=== PATIENT | female | born 1990 | race Hispanic/Latino ===

== ENCOUNTER 2016-11-07 10:04 | Emergency (ER) | payer OTHER ==
[~2016-11-07 10:04] MED LIST: ACET50TA PO; ANUS2.5C2 TOP; COLA50CA3 PO; IBUP80TA PO; IRON325T PO; MOM30SS PO; PRENTAB74 PO
--- NOTE | 2016-11-07 11:33 | REP ---
Emergency first trimester obstetric sonography: History: Cramping. Findings: Transabdominal scanning demonstrates a viable single intrauterine gestation. [place]-rump length of the embryonic pole is 13 mm. This corresponds with a gestational age estimate of 7 weeks 4 days. heart rate is recorded at 158. No subchorionic hemorrhage is seen. There is a 2.2 centimeter cyst in the right maternal ovary consistent with corpus luteum. Impression: Viable single intrauterine gestation at 7 weeks 4 days by crown-rump length. MARTHA by sonography June 22, 2017. No complication identified. Signed by Earl Sawyer MD 11/07/2016 02:00 P
--- NOTE | 2016-11-07 11:34 | EDDOCDS ---
Nurse's Notes [facility] Name: Loy Redmond Age: 26 yrs Sex: Female : 1990 Arrival Date: 11/07/2016 Time: 10:04 Bed PR1 / Private MD: Mary [facility] Diagnosis: related conditions, unspecified, first trimester Presentation: 11/07 10:09 Presenting complaint: Patient states: Was called by Mary a few minutes ago and told jo3 she had a positive test yesterday. Has been having lower abdominal pain x four days and brown spotting this morning. Adult Sepsis Screening: The patient does not have new or worsening altered mentation. Patient's respiratory rate is less than 22. Systolic blood pressure is greater than 100. Patient has a qSOFA score of 0- Negative Sepsis Screen. Suicide/Homicide risk assessment- the patient denies having any suicidal and/or homicidal ideations and does not present with any other emotional, behavioral or mental health complaints. Status: The patient is a dependent. Transition of care: patient was not received from another setting of care. 10:09 Acuity: DAGMAR Level 3 jo3 10:09 Method Of Arrival: Walkin/Carried/Asstd jo3 10:14 Presenting complaint: Patient states: Pt states at end of triage "I have only known I jan was for like three days so I want to know if anything is wrong". Triage Assessment: 10:11 General: Appears in no apparent distress, comfortable, Behavior is appropriate for age, jo3 cooperative. Pain: Pain currently is 4 out of 10 on a pain scale. HIV screening NA for this visit Offered previously. Neurological: Level of Consciousness is awake, alert, Oriented to person, place, time. Respiratory: Airway is patent Respiratory effort is even, unlabored. GI: Reports lower abdominal pain. Derm: Skin is pink, warm & dry. 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 none - PMHx: none; - PSHx: none; - Social history: Smoking status: Patient states was never smoker of tobacco. No barriers to communication noted, The patient speaks fluent Ugandan, Speaks appropriately for age. - Family history: Not pertinent. - : The pt / caregiver states he / she is not on anticoagulants. Home medication list is obtained from the patient. - Exposure Risk Screening:: None identified. Screenin:30 Screening information is obtained from the patient. Fall risk: No risks identified. jo3 Assistance ADL's: requires no assistance with activities of daily living. Abuse/DV Screen: The patient / caregiver reports he/she is: not in a situation that causes fear, pain or injury. Nutritional screening: No deficits noted. Advance Directives: There is no active DNR order. home support is adequate. Assessment: 10:29 General: Appears in no apparent distress, comfortable, Behavior is appropriate for age, jo3 cooperative, pleasant. Neurological: No deficits noted. Respiratory: No deficits noted. Airway is patent Respiratory effort is even, unlabored. Derm: Skin is pink, warm & dry. 11:31 Reassessment: Patient appears in no apparent distress at this time. Patient states ttb feeling better. Patient states symptoms have improved. pt states headache. Educated on use of tylenol during pregancy. States she is comfortable going home.. GI: other no n/v noted. Vital Signs: 10:05 BP 123 / 73; Pulse 92; Resp 18 S; Temp 96.6(O); Pulse Ox 98% on R/A; Weight 58.06 kg dd6 (M); Height 5 ft. 1 in. (154.94 cm) (R); 11:27 BP 125 / 72; Pulse 78; Resp 18; Pulse Ox 100% ; Pain 2/10; ttb 10:05 Body Mass Index 24.19 (58.06 kg, 154.94 cm) dd6 Vitals: 10:05 Log In Time: November 07, 2016 at 10:03. dd6 ED Course: 10:05 Patient visited by Randy Rosales PCA. dd6 10:05 NICOLE Hernandez is Private Physician. dd6 10:05 Patient moved to Waiting dd6 10:06 Patient moved to Pre RCE dd6 10:11 Triage Initiated jo3 10:15 Patient visited by Becki Maxwell RN. jo3 10:15 Patient moved to Triage 1 jo3 10:15 Patient moved to Triage 2 jo3 10:16 Maycol Bloom [facility]C [facility] cc10 10:16 Ca Hurtado MD is Attending Physician. cc10 10:18 Patient visited by Maycol Bloom PA-C. cc10 10:18 Patient visited by Maycol Bloom PA-C. cc10 10:29 Patient moved to [address] 10:29 Hcg, Serum Quantitative Sent. jo3 10:30 The patient / caregiver is instructed regarding the plan of care and ED course. jo3 10:30 No IV's were initiated during this patient's visit. No procedures done that require jo3 assistance. Labs drawn. (by ED staff). Sent per order to lab. 10:38 Patient name changed from Maiyurys\\S\\\\S\\Roger-Bautista\\S\\ to Maiyurys\\S\\ \\S\\Roger-Bautista. EDMS 10:39 [facility] Payment Agreement was scanned into [employer] and attached to record. lg 11:24 Patient moved to PR rn1 11:26 Mary [facility] is Referral Physician. cc10 11:31 Accompanied by Friend, Patient has correct armband on for positive identification. ttb Order Results: Lab Order: Hcg, Serum Quantitative; SPEC'M 11/07/16 10:26 Test: HCG, SERUM QUANTITATIVE; Value: [id number]; Units: MIU/ML; Status: F Test Note: ; GESTATIONAL AGE APPROXIMATE HCG RANGE (MIU/ML) 0.2-1 WEEK 5-50 1-2 WEEKS 50-500 2-3 WEEKS 100-5,000 3-4 WEEKS 500-10,000 4-5 WEEKS 1,000-50,000 5-6 WEEKS 10,000-100,000 6-8 WEEKS 15,000-200,000 2-3 MONTHS 10,000-100,000 NON FEMALES LESS THAN 3.0 Patient samples may contain human heterophilic antibodies that could react with immunoassays to give falsely elevated or depressed results. This assay has been designed to minimize interference from heterophilic antibodies. Elevated hCG levels have also been associated with trophoblastic disease and nontrophoblastic neoplasms. The possibility of having these diseases should be considered before a diagnosis of is made. This test is not intended for use as a surrogate marker for aiding in the diagnosis or monitoring the treatment of cancer patients. Siemens [place] methodology. Outcome: 11:26 Discharge ordered by Provider. cc10 11:31 Discharge Assessment: Patient awake, alert and oriented x 3. No cognitive and/or ttb functional deficits noted. Patient verbalized understanding of disposition instructions. Patient awake and alert. patient administered narcotics - no. The following High Risk Discharge criteria are identified: None. Discharged to home ambulatory, with friend. Condition: good Condition: stable Condition: improved. Discharge instructions given to patient, friend, Instructed on discharge instructions, follow up and referral plans. medication usage, Demonstrated understanding of instructions, medications, Pt was receptive of discharge instructions/ teaching. Ultrasound Study completed. Property :Personal belongings accompany Pt. 11:33 Patient left the ED. ttb Signatures: Dispatcher [employer] EDMS Amie Medrano, RN RN srm Sofía Shah, Reg Reg lg Becki Maxwell RN RN jo3 Randy Rosales, ASSOCIATE MEDIA DIRECTOR ASSOCIATE MEDIA DIRECTOR dd6 Yulia Costa RN RN ttb Maycol Bloom, PA-C PA-C cc10 Freddy Gant rn1 Corrections: (The following items were deleted from the chart) 10:14 10:09 Presenting complaint: Patient states: Was called by Mary a few minutes ago and jan told she had a positive test yesterday. Has been having lower abdominal pain x four days and brown spotting this morning joCyndee MTDD
--- NOTE | 2016-11-07 11:34 | EDDOCDS ---
Physician Documentation [facility] Name: Loy Redmond Age: 26 yrs Sex: Female : 1990 Arrival Date: 11/07/2016 Time: 10:04 Bed PR1 / 25 Private MD: NICOLE Hernandez Disposition: 11/07/16 11:26 Discharged to Home/Self Care. Impression: related conditions, unspecified, first trimester. - Condition is Stable. - Discharge Instructions: First Trimester of . - Medication Reconciliation form. - Follow up: NICOLE Hernandez; When: As needed. - Problem is an ongoing problem. - Symptoms are unchanged. Historical: - Allergies: IODINEIODINE CONTAINING; - Home Meds: 1. none - PMHx: none; - PSHx: none; - Social history: Smoking status: Patient states was never smoker of tobacco. No barriers to communication noted, The patient speaks fluent Surinamese, Speaks appropriately for age. - Family history: Not pertinent. - : The pt / caregiver states he / she is not on anticoagulants. Home medication list is obtained from the patient. - Exposure Risk Screening:: None identified. 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 1 in. (154.94 cm) (R); 11:27 BP 125 / 72; Pulse 78; Resp 18; Pulse Ox 100% ; Pain 2/10; ttb 10:05 Body Mass Index 24.19 (58.06 kg, 154.94 cm) dd6 MDM: 10:22 Hcg, Serum Quantitative Ordered. EDMS 10:22 US 1st trimester Ordered. EDMS 10:31 Financial registration complete. lg 10:39 [facility] Payment Agreement was scanned into [employer] and attached to record. lg 11:06 DUPLEX SCAN LIMITED (DOPPLER) Ordered. EDMS 11:23 Hcg, Serum Quantitative Reviewed. cc10 Signatures: Dispatcher [employer] EDMS Sofía Shah, Reg Reg lg Becki Maxwell RN RN Yulia Glez RN RN franklynb Maycol Bloom, PADavidC PADavidC cc10 The chart was reviewed and I authenticate all verbal orders and agree with the evaluation and treatment provided.Attachments: 10:39 [facility] Payment Agreement lg MTDD
--- NOTE | 2016-11-09 12:34 | EDDOCDS ---
Nurse's Notes [facility] Name: Loy Redmond Age: 26 yrs Sex: Female : 1990 Arrival Date: 11/07/2016 Time: 10:04 Bed PR1 / Private MD: Mary [facility] Diagnosis: related conditions, unspecified, first trimester Presentation: 11/07 10:09 Presenting complaint: Patient states: Was called by Mary a few minutes ago and told jo3 she had a positive test yesterday. Has been having lower abdominal pain x four days and brown spotting this morning. Adult Sepsis Screening: The patient does not have new or worsening altered mentation. Patient's respiratory rate is less than 22. Systolic blood pressure is greater than 100. Patient has a qSOFA score of 0- Negative Sepsis Screen. Suicide/Homicide risk assessment- the patient denies having any suicidal and/or homicidal ideations and does not present with any other emotional, behavioral or mental health complaints. Status: The patient is a dependent. Transition of care: patient was not received from another setting of care. 10:09 Acuity: DAGMAR Level 3 jo3 10:09 Method Of Arrival: Walkin/Carried/Asstd jo3 10:14 Presenting complaint: Patient states: Pt states at end of triage "I have only known I jan was for like three days so I want to know if anything is wrong". Triage Assessment: 10:11 General: Appears in no apparent distress, comfortable, Behavior is appropriate for age, jo3 cooperative. Pain: Pain currently is 4 out of 10 on a pain scale. HIV screening NA for this visit Offered previously. Neurological: Level of Consciousness is awake, alert, Oriented to person, place, time. Respiratory: Airway is patent Respiratory effort is even, unlabored. GI: Reports lower abdominal pain. Derm: Skin is pink, warm & dry. 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 none - PMHx: none; - PSHx: none; - Social history: Smoking status: Patient states was never smoker of tobacco. No barriers to communication noted, The patient speaks fluent Thai, Speaks appropriately for age. - Family history: Not pertinent. - : The pt / caregiver states he / she is not on anticoagulants. Home medication list is obtained from the patient. - Exposure Risk Screening:: None identified. Screenin:30 Screening information is obtained from the patient. Fall risk: No risks identified. jo3 Assistance ADL's: requires no assistance with activities of daily living. Abuse/DV Screen: The patient / caregiver reports he/she is: not in a situation that causes fear, pain or injury. Nutritional screening: No deficits noted. Advance Directives: There is no active DNR order. home support is adequate. Assessment: 10:29 General: Appears in no apparent distress, comfortable, Behavior is appropriate for age, jo3 cooperative, pleasant. Neurological: No deficits noted. Respiratory: No deficits noted. Airway is patent Respiratory effort is even, unlabored. Derm: Skin is pink, warm & dry. 11:31 Reassessment: Patient appears in no apparent distress at this time. Patient states ttb feeling better. Patient states symptoms have improved. pt states headache. Educated on use of tylenol during pregancy. States she is comfortable going home.. GI: other no n/v noted. Vital Signs: 10:05 BP 123 / 73; Pulse 92; Resp 18 S; Temp 96.6(O); Pulse Ox 98% on R/A; Weight 58.06 kg dd6 (M); Height 5 ft. 1 in. (154.94 cm) (R); 11:27 BP 125 / 72; Pulse 78; Resp 18; Pulse Ox 100% ; Pain 2/10; ttb 10:05 Body Mass Index 24.19 (58.06 kg, 154.94 cm) dd6 Vitals: 10:05 Log In Time: November 07, 2016 at 10:03. dd6 ED Course: 10:05 Patient visited by Randy Rosales PCA. dd6 10:05 NICOLE Hernandez is Private Physician. dd6 10:05 Patient moved to Waiting dd6 10:06 Patient moved to Pre RCE dd6 10:11 Triage Initiated jo3 10:15 Patient visited by Becki Maxwell RN. jo3 10:15 Patient moved to Triage 1 jo3 10:15 Patient moved to Triage 2 jo3 10:16 Maycol Bloom PA-C [facility] cc10 10:16 Ca Hurtado MD is Attending Physician. cc10 10:18 Patient visited by Maycol Bloom PA-C. cc10 10:18 Patient visited by Maycol Bloom PA-C. cc10 10:29 Patient moved to [address] 10:29 Hcg, Serum Quantitative Sent. jo3 10:30 The patient / caregiver is instructed regarding the plan of care and ED course. jo3 10:30 No IV's were initiated during this patient's visit. No procedures done that require jo3 assistance. Labs drawn. (by ED staff). Sent per order to lab. 10:38 Patient name changed from Maiyurys\\S\\\\S\\Roger-Bautista\\S\\ to Maiyurys\\S\\ \\S\\Roger-Bautista. EDMS 10:39 [facility] Payment Agreement was scanned into [employer] and attached to record. lg 11:24 Patient moved to [place] rn1 11:26 Mary [facility] is Referral Physician. cc10 11:31 Accompanied by Friend, Patient has correct armband on for positive identification. ttb 12:15 US 1st trimester Returned. EDMS 12:15 DUPLEX SCAN LIMITED (DOPPLER) Returned. EDMS 13:30 T-Sheet-- Draft Copy was scanned into [employer] and attached to record. gb Order Results: Lab Order: Hcg, Serum Quantitative; SPEC'M 11/07/16 10:26 Test: HCG, SERUM QUANTITATIVE; Value: [id number]; Units: MIU/ML; Status: F Test Note: ; GESTATIONAL AGE APPROXIMATE HCG RANGE (MIU/ML) 0.2-1 WEEK 5-50 1-2 WEEKS 50-500 2-3 WEEKS 100-5,000 3-4 WEEKS 500-10,000 4-5 WEEKS 1,000-50,000 5-6 WEEKS 10,000-100,000 6-8 WEEKS 15,000-200,000 2-3 MONTHS 10,000-100,000 NON FEMALES LESS THAN 3.0 Patient samples may contain human heterophilic antibodies that could react with immunoassays to give falsely elevated or depressed results. This assay has been designed to minimize interference from heterophilic antibodies. Elevated hCG levels have also been associated with trophoblastic disease and nontrophoblastic neoplasms. The possibility of having these diseases should be considered before a diagnosis of is made. This test is not intended for use as a surrogate marker for aiding in the diagnosis or monitoring the treatment of cancer patients. Siemens [place] methodology. Radiology Order: US 1st trimester Test: US 1st trimester REASON FOR EXAMINATION: Abdomen Pain; Emergency first trimester obstetric sonography:; ; History: Cramping.; ; Findings: Transabdominal scanning demonstrates a viable single intrauterine; gestation. [place]-rump length of the embryonic pole is 13 mm. This corresponds; with a gestational age estimate of 7 weeks 4 days. heart rate is recorded; at 158. No subchorionic hemorrhage is seen. There is a 2.2 centimeter cyst in; the right maternal ovary consistent with corpus luteum.; ; Impression:; ; Viable single intrauterine gestation at 7 weeks 4 days by crown-rump length. MARTHA; by sonography June 22, 2017. No complication identified.; ; ; Signed by; Earl Sawyer MD 11/07/2016 02:00 P; Radiology Order: DUPLEX SCAN LIMITED (DOPPLER) Test: DUPLEX SCAN LIMITED (DOPPLER) REASON FOR EXAMINATION: EVAL OVARIES; Emergency first trimester obstetric sonography:; ; History: Cramping.; ; Findings: Transabdominal scanning demonstrates a viable single intrauterine; gestation. [place]-rump length of the embryonic pole is 13 mm. This corresponds; with a gestational age estimate of 7 weeks 4 days. heart rate is recorded; at 158. No subchorionic hemorrhage is seen. There is a 2.2 centimeter cyst in; the right maternal ovary consistent with corpus luteum.; ; Impression:; ; Viable single intrauterine gestation at 7 weeks 4 days by crown-rump length. MARTHA; by sonography June 22, 2017. No complication identified.; ; ; Signed by; Earl Sawyer MD 11/07/2016 02:00 P; Outcome: 11:26 Discharge ordered by Provider. cc10 11:31 Discharge Assessment: Patient awake, alert and oriented x 3. No cognitive and/or ttb functional deficits noted. Patient verbalized understanding of disposition instructions. Patient awake and alert. patient administered narcotics - no. The following High Risk Discharge criteria are identified: None. Discharged to home ambulatory, with friend. Condition: good Condition: stable Condition: improved. Discharge instructions given to patient, friend, Instructed on discharge instructions, follow up and referral plans. medication usage, Demonstrated understanding of instructions, medications, Pt was receptive of discharge instructions/ teaching. Ultrasound Study completed. Property :Personal belongings accompany Pt. 11:33 Patient left the ED. ttb Signatures: Dispatcher [employer] EDMS Amie Medrano, RN RN srm Perla, [place], Reg Reg gb Sofía Shah, Reg Reg lg Becki Maxwell RN RN jo3 Randy Rosales, WORKPLACE TRAINER AND ASSESSOR WORKPLACE TRAINER AND ASSESSOR dd6 Yulia Costa RN RN ttb Maycol Bloom, PA-C PA-C fred10 Freddy Gant rn1 Corrections: (The following items were deleted from the chart) 10:14 10:09 Presenting complaint: Patient states: Was called by Mary a few minutes ago and jan told she had a positive test yesterday. Has been having lower abdominal pain x four days and brown spotting this morning joCyndee Chart Complete MTDD
--- NOTE | 2016-11-09 12:34 | EDDOCDS ---
Physician Documentation [facility] Name: Loy Redmond Age: 26 yrs Sex: Female : 1990 Arrival Date: 11/07/2016 Time: 10:04 Bed PR1 / 25 Private MD: NICOLE Hernandez Disposition: 11/07/16 11:26 Discharged to Home/Self Care. Impression: related conditions, unspecified, first trimester. - Condition is Stable. - Discharge Instructions: First Trimester of . - Medication Reconciliation form. - Follow up: NICOLE Hernandez; When: As needed. - Problem is an ongoing problem. - Symptoms are unchanged. Historical: - Allergies: IODINEIODINE CONTAINING; - Home Meds: 1. none - PMHx: none; - PSHx: none; - Social history: Smoking status: Patient states was never smoker of tobacco. No barriers to communication noted, The patient speaks fluent Estonian, Speaks appropriately for age. - Family history: Not pertinent. - : The pt / caregiver states he / she is not on anticoagulants. Home medication list is obtained from the patient. - Exposure Risk Screening:: None identified. 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 1 in. (154.94 cm) (R); 11:27 BP 125 / 72; Pulse 78; Resp 18; Pulse Ox 100% ; Pain 2/10; ttb 10:05 Body Mass Index 24.19 (58.06 kg, 154.94 cm) dd6 MDM: 10:22 Hcg, Serum Quantitative Ordered. EDMS 10:22 US 1st trimester Ordered. EDMS 10:31 Financial registration complete. lg 10:39 [facility] Payment Agreement was scanned into [employer] and attached to record. lg 11:06 DUPLEX SCAN LIMITED (DOPPLER) Ordered. EDMS 11:23 Hcg, Serum Quantitative Reviewed. cc10 13:30 T-Sheet-- Draft Copy was scanned into [employer] and attached to record. gb Signatures: Dispatcher Zighra EDMS Mariposa Duncan, Reg Reg gb Sofía Shah, Reg Reg lg Becki Maxwell RN RN joYulia Eddy RN RN ttMaycol Allen, CHANELL PASherif cc10 The chart was reviewed and I authenticate all verbal orders and agree with the evaluation and treatment provided.Attachments: 10:39 [facility] Payment Agreement lg 13:30 T-Sheet-- Draft Copy gb Chart Complete MTDD
--- NOTE | 2016-11-09 12:34 | EDDOCDS ---
Physician Documentation [facility] Name: Loy Redmond Age: 26 yrs Sex: Female : 1990 Arrival Date: 11/07/2016 Time: 10:04 Bed PR1 / 25 Private MD: NICOLE Hernandez Disposition: 11/07/16 11:26 Discharged to Home/Self Care. Impression: related conditions, unspecified, first trimester. - Condition is Stable. - Discharge Instructions: First Trimester of . - Medication Reconciliation form. - Follow up: NICOLE Hernandez; When: As needed. - Problem is an ongoing problem. - Symptoms are unchanged. Historical: - Allergies: IODINEIODINE CONTAINING; - Home Meds: 1. none - PMHx: none; - PSHx: none; - Social history: Smoking status: Patient states was never smoker of tobacco. No barriers to communication noted, The patient speaks fluent Macedonian, Speaks appropriately for age. - Family history: Not pertinent. - : The pt / caregiver states he / she is not on anticoagulants. Home medication list is obtained from the patient. - Exposure Risk Screening:: None identified. 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 1 in. (154.94 cm) (R); 11:27 BP 125 / 72; Pulse 78; Resp 18; Pulse Ox 100% ; Pain 2/10; ttb 10:05 Body Mass Index 24.19 (58.06 kg, 154.94 cm) dd6 MDM: 10:22 Hcg, Serum Quantitative Ordered. EDMS 10:22 US 1st trimester Ordered. EDMS 10:31 Financial registration complete. lg 10:39 [facility] Payment Agreement was scanned into [employer] and attached to record. lg 11:06 DUPLEX SCAN LIMITED (DOPPLER) Ordered. EDMS 11:23 Hcg, Serum Quantitative Reviewed. cc10 13:30 T-Sheet-- Draft Copy was scanned into [employer] and attached to record. gb Signatures: Dispatcher [employer] EDMS Mariposa Duncan, Reg Reg gb Sofía Shah, Reg Reg lg Becki Maxwell RN RN joYulia Eddy RN RN ttMaycol Allen, CHANELL PASherif cc10 The chart was reviewed and I authenticate all verbal orders and agree with the evaluation and treatment provided.Attachments: 10:39 [facility] Payment Agreement lg 13:30 T-Sheet-- Draft Copy gb Chart Complete MTDD
== END 2016-11-07 11:33 | disposition home or self-care (01) ==
LOC: M ED 10:04
DX: O26.91 Pregnancy related conditions, unspecified, first trimester (principal); Z91.89 Other specified personal risk factors, not elsewhere classified

== ENCOUNTER → 2017-03-18 | Outpatient (REF) | payer OTHER | LOC: M LAB REF 10:54 | PROVIDERS: ATTEND Advanced Practice Midwife | DX: O47.02 False labor before 37 completed weeks of gestation, second trimester (principal); Z3A.00 Weeks of gestation of pregnancy not specified ==